=== PATIENT | male | born 1985 | race Caucasian/White ===

== ENCOUNTER 2019-10-30 23:43 | Emergency (ER) | payer BC ==
[~2019-10-30] VITALS: Ht 180.3 cm; Wt 108.9 kg
[~2019-10-30 23:43] MED LIST: 'CLONIDINE0.1 MG PO; ALLOPURINOL100 MG PO; AMLODIPINE BESY10 MG PO; ATARAX,VISTARIL50 MG PO; ATIVAN1 MG PO; INDOCIN50 M2 PO; LAMICTAL25 MG PO; LIBRIUM5 MG PO; NATURE'S BLEND F1 MG PO; NEXIUM40 MG PO; PROPRANOLOL HY120 MG PO; PROZAC10 MG PO; TIZANIDINE HCL4 MG PO; TRAZODONE50 MG PO; VITAMIN B-1100 M1 PO; VITAMIN C500 M8 PO
== END 2019-10-31 01:43 | disposition home or self-care (01) ==
LOC: ED 23:43
DX: M10.9 Gout, unspecified (principal); K21.9 Gastro-esophageal reflux disease without esophagitis; F41.9 Anxiety disorder, unspecified; F32.9 Major depressive disorder, single episode, unspecified; I10 Essential (primary) hypertension; F17.200 Nicotine dependence, unspecified, uncomplicated; Z88.8 Allergy status to other drugs, medicaments and biological substances; Z79.899 Other long term (current) drug therapy

== ENCOUNTER 2019-11-23 22:10 | Emergency (ER) | payer BC ==
[~2019-11-23] VITALS: Wt 108.9 kg
[2019-11-24] MEDS ORDERED: DOXYCYCLINE100 M3 PO (00:38)
== END 2019-11-24 01:19 | disposition home or self-care (01) ==
LOC: ED 22:10
DX: S60.453A Superficial foreign body of left middle finger, initial encounter (principal); Z88.8 Allergy status to other drugs, medicaments and biological substances; Z79.899 Other long term (current) drug therapy; Z79.2 Long term (current) use of antibiotics; W45.8XXA Other foreign body or object entering through skin, initial encounter; Y93.89 Activity, other specified; Y92.89 Other specified places as the place of occurrence of the external cause; Y99.8 Other external cause status

== ENCOUNTER 2020-02-17 19:05 | Emergency (ER) | payer BC ==
[~2020-02-17] VITALS: Ht 180.3 cm; Wt 100.7 kg
[~2020-02-17 19:05] MED LIST changes: +DOXYCYCLINE100 M3 PO
[2020-02-17] MEDS ORDERED: OMEPRAZOLE40 MG PO (19:48)
[2020-02-17] MEDS ORDERED: TRINTELLIX20 MG PO (19:48)
[2020-02-17] MEDS ORDERED: QUETIAPINE FUM200 M3 PO (19:49)
[2020-02-17] MEDS ORDERED: LORAZEPAM1 MG PO (19:49)
[2020-02-17] MEDS ORDERED: LAMOTRIGINE200 MG PO (19:50)
== END 2020-02-17 20:54 | disposition home or self-care (01) ==
LOC: ED 19:05
DX: R05 Cough (principal); R09.89 Other specified symptoms and signs involving the circulatory and respiratory systems; K21.9 Gastro-esophageal reflux disease without esophagitis; F41.9 Anxiety disorder, unspecified; M10.9 Gout, unspecified; I10 Essential (primary) hypertension; F32.9 Major depressive disorder, single episode, unspecified; F17.200 Nicotine dependence, unspecified, uncomplicated; Z88.8 Allergy status to other drugs, medicaments and biological substances; Z79.899 Other long term (current) drug therapy; Z20.828 Contact with and (suspected) exposure to other viral communicable diseases